=== PATIENT | female | born 1985 | race African-American/Black ===

== ENCOUNTER 2020-05-17 10:16 | Emergency (ER) | payer OTHER ==
[~2020-05-17] VITALS: Ht 172.7 cm; Wt 113.0 kg
[2020-05-17 10:35] VITALS: BP 146/93
--- NOTE | 2020-05-17 10:49 | PHYS DOC ---
General Adult EDM: Chief Complaint: SHORTNESS OF BREATH HPI: HPI: History obtained from patient. Patient is a 35-year-old female with recent right breast lumpectomy, asthma, anxiety who presents with chief complaint of shortness of breath. Patient states she had a right breast lumpectomy 5 days prior to arrival. She states she developed some shortness of breath over the weekend. She states she thought it was asthma so she tried her nebulizers at home with minimal relief. She spoke with her surgeon's office today who encouraged her to report to the emergency department for further evaluation. She denies chest pain. She does note extreme anxiousness. She states she is fearful of what could be causing this. She did try an inhaler this morning without relief. Notes mild cough. States she was tested for Covid prior to her surgery and was negative. Denies fevers. Denies chest pain or syncope. Denies feelings of irregular rapid heartbeat. Denies history of blood clot in the legs or lungs. No other complaints. Review of Systems: Review of Systems: Constitutional: Denies fever or chills Eyes: Denies change in visual acuity HENT: Denies nasal congestion or sore throat Respiratory: Positive for shortness of breath and cough Cardiovascular: Denies chest pain or edema GI: Denies abdominal pain, nausea, vomiting, bloody stools or diarrhea : Denies dysuria Musculoskeletal: Denies back pain or joint pain Integument: Denies rash Neurologic: Denies headache, focal weakness or sensory changes Endocrine: Denies polyuria or polydipsia Lymphatic: Denies swollen glands Psychiatric: Positive for anxiety Physical Exam: PE: Constitutional: Well developed, well nourished, no acute distress, non-toxic appearance. [] HENT: Normocephalic, atraumatic, bilateral external ears normal, oropharynx moist, no oral exudates, nose normal. [] Eyes: PERRLA, EOMI, conjunctiva normal, no discharge. [] Neck: Normal range of motion, no tenderness, supple, no stridor. [] Cardiovascular: Tachycardic, regular. No murmurs appreciated. 4 cm surgical site noted to the right medial mammillary fold. Dermabond overlying. No surrounding erythema or induration. No crepitus palpated. Lungs & Thorax: Bilateral breath sounds clear to auscultation [] Abdomen: soft, no tenderness, no masses, no pulsatile masses. [] Skin: Warm, dry, no erythema, no rash. [] Back: No tenderness, no CVA tenderness. [] Extremities: No tenderness, no cyanosis, no clubbing, ROM intact, no edema. [] Neurologic: Alert and oriented X 3, normal motor function, normal sensory function, no focal deficits noted. [] Psychologic: Anxious appearing Current Patient Data: Labs: Laboratory Tests Test 05/17/20 11:10 White Blood Count 15.0 x10^3/uL Red Blood Count 4.41 x10^6/uL Hemoglobin 13.4 g/dL Hematocrit 41.0 % Mean Corpuscular Volume 93 fL Mean Corpuscular Hemoglobin 30 pg Mean Corpuscular Hemoglobin Concent 33 g/dL Red Cell Distribution Width 14.0 % Platelet Count 174 x10^3/uL Neutrophils (%) (Auto) 70 % Lymphocytes (%) (Auto) 23 % Monocytes (%) (Auto) 5 % Eosinophils (%) (Auto) 1 % Basophils (%) (Auto) 0 % Neutrophils # (Auto) 10.6 x10^3uL Lymphocytes # (Auto) 3.4 x10^3/uL Monocytes # (Auto) 0.8 x10^3/uL Eosinophils # (Auto) 0.2 x10^3/uL Basophils # (Auto) 0.0 x10^3/uL Maternal Serum HCG Beta Subunit < 1 mIU/mL Sodium Level 137 mmol/L Potassium Level 4.1 mmol/L Chloride Level 103 mmol/L Carbon Dioxide Level 24 mmol/L Anion Gap 10 Blood Urea Nitrogen 7 mg/dL Creatinine 0.8 mg/dL Estimated GFR (Cockcroft-Gault) 98.8 Glucose Level 98 mg/dL Calcium Level 8.5 mg/dL Troponin I Quantitative < 0.017 ng/mL FP-Ulj-B-Type Natriuretic Peptide 66 pg/mL Current Medications Medications (Trade) Dose Ordered Sig/Ev Route PRN Reason Start Time Stop Time Status Last Admin Dose Admin Lorazepam (Ativan Inj) 1 mg 1X ONCE IVP 05/17/20 10:45 05/17/20 11:29 DC 05/17/20 11:26 Iohexol (Omnipaque 350 Mg/ml) 100 ml 1X ONCE IV 05/17/20 11:00 05/17/20 11:29 DC 05/17/20 11:58 Vital Signs: Vital Signs Date Time Temp Pulse Resp B/P (MAP) Pulse Ox O2 Delivery O2 Flow Rate FiO2 05/17/20 10:35 98.8 88 16 146/93 (110) 98 EKG: EKG: [] EKG consistent with normal sinus rhythm. Ventricular rate of 87 bpm. Left axis deviation noted. Nonspecific T wave abnormality noted in lead III. No acute ischemic changes appreciated. No previous EKG for comparison. Radiology/Procedures: Radiology/Procedures: [address] [address] IMAGING REPORT Signed PATIENT: MARTINEZ WOLF AACCOUNT: [id number] : 1985 LOCATION: ER AGE: 35 SEX: F EXAM STATUS: REG ER ORD. PHYSICIAN: CHUYITA RICHARDS DO REASON: SOB. recent hx R lumpectomy PROCEDURE: CT ANGIOGRAPHY CHEST CTA CHEST INDICATION: SOB. recent hx R lumpectomy Comparison: None. TECHNIQUE: Following the uneventful administration of intravenous contrast, 75 cc Isovue-370, axial CT sections were obtained through the lungs and upper abdomen. Multiplanar reconstructions and MIP images were obtained. PQRS compliance statement: One or more of the following individualized dose reduction techniques were utilized for this examination: 1. Automated exposure control 2. Adjustment of the mA and/or kV according to patient size 3. Use of iterative reconstruction technique FINDINGS: Pulmonary arteries: No evidence of large central pulmonary thromboembolic disease. Segmental and subsegmental branches not well evaluated due to suboptimal contrast opacification. Lungs and Airways: No pulmonary mass or consolidation. No abnormality of the central airways. Pleura: The pleural spaces are normal. Heart and Mediastinum: The visualized thyroid is normal in size and attenuation. No axillary or supraclavicular lymphadenopathy. No mediastinal, hilar or retrocrural lymphadenopathy. The heart and pericardium are within normal limits. The great vessels of the thorax are normal. Abdomen: Limited images through the upper abdomen show no abnormality of the visualized organs. Bones and Soft Tissues: No acute osseous abnormality. Postsurgical changes of recent right lumpectomy. No fluid collection. IMPRESSION: 1. No evidence of large central pulmonary thromboembolic disease. Segmental and subsegmental branches not well evaluated due to suboptimal contrast opacification. 2. No pulmonary mass or consolidation. 3. Postsurgical changes of recent right breast lumpectomy. No large fluid collection. Electronically signed by: Carmen Brunner MD (05/17/2020 12:17 PM) [id number] DICTATED AND SIGNED BY: CARMEN BRUNNER MD DATE: 05/17/20 1208 CC: CHUYITA RICHARDS DO; DEBBIE RODRIGUEZ ~MTH0 0 [] Heart Score: Risk Factors: Risk Factors: DM, Current or recent (<one month) smoker, HTN, HLP, family history of CAD, obesity. Risk Scores: Score 0 - 3: 2.5% MACE over next 6 weeks - Discharge Home Score 4 - 6: 20.3% MACE over next 6 weeks - Admit for Clinical Observation Score 7 - 10: 72.7% MACE over next 6 weeks - Early Invasive Strategies Course & Med Decision Making: Course & Med Decision Making Pertinent Labs and Imaging studies reviewed. (See chart for details) [] Patient is an extremely anxious appearing 35-year-old female who presents with chief complaint of chest discomfort when she breathes in and associated shortness of breath. She notes a recent right breast lumpectomy. Initial vital signs grossly unremarkable. EKG without acute ischemic changes. CT imaging of the chest was obtained reveals no pulmonary Bhilai or signs of infectious etiology. Patient surgical site appears well-healed. moderate tenderness palpation over the surgical site. Labs were obtained and were grossly remarkable. She has a mild leukocytosis of 15,000. Low suspicion for infectious etiology but potentially reactive from her recent surgery. On repeat assessment after receiving anxiety medication patient appears significantly improved. She is able to relate to me now that she does have a history of severe anxiety and does typically take Xanax daily but not take it recently due to nausea. She states that ever since she was diagnosed with adenovirus 9 years ago she has had severe anxiety particularly around healthcare providers. Significant other in the room also corroborates this. Her repeat auscultation reveals no wheezes. I do suspect that her symptoms could related to some postsurgical chest wall discomfort. I do feel she is appropriate for discharge home. Low risk heart score by my estimation. I did discuss results of labs and imaging great detail the patient. All concerns were addressed. I did instruct follow-up with her surgeon and PCP in the next 2 to 3 days. Patient is comfortable and agreeable with outpatient management. She was encouraged to continue to use her postoperative pain medication as prescribed by her physician. Anti-inflammatories also encouraged. Stable for discharge home. Ericka Disclaimer: Ericka Disclaimer: This electronic medical record was generated, in whole or in part, using a voice recognition dictation system. Departure Departure: Impression: Primary Impression: Shortness of breath Additional Impression: Anxiety Disposition: 01 DC HOME SELF CARE/HOMELESS Condition: STABLE Referrals: DEBBIE RODRIGUEZ (PCP) Patient Instructions: Anxiety and Panic Attacks Additional Instructions: Please follow with your primary care physician and surgeon within the next 2 to 3 days. CHUYITA RICHARDS DO May 17, 2020 10:49
[2020-05-17] MEDS ORDERED: IOHEXOL 350 MG/ML 100 ML VIAL. IV ONE (11:00)
[2020-05-17 11:39] LABS: BASO % 0 % (0-3); EOS # 0.2 x10^3/uL (0.0-0.7); EOS % 1 % (0-3); HEMOGLOBIN 13.4 g/dL (12.0-15.5); LYMPH # 3.4 x10^3/uL (1.0-4.8); LYMPH % 23 % (24-48); MEAN CORPUSCULAR HEMOGLOBIN 30 pg (25-35); MEAN CORPUSCULAR HGB CONC 33 g/dL (31-37); MEAN CORPUSCULAR VOLUME 93 fL (79-100); MONO # 0.8 x10^3/uL (0.0-1.1); MONO % 5 % (0-9); NEUT # 10.6 x10^3uL (1.8-7.7); NEUT % 70 % (31-73); PLATELET COUNT 174 x10^3/uL (140-400); RED BLOOD COUNT 4.41 x10^6/uL (3.50-5.40)
[2020-05-17 11:48] LABS: CALCIUM 8.5 mg/dL (8.5-10.1); CREATININE 0.8 mg/dL (0.6-1.0); GFR 98.8; POTASSIUM 4.1 mmol/L (3.5-5.1)
--- NOTE | 2020-05-17 12:19 | RAD ---
CTA CHEST INDICATION: SOB. recent hx R lumpectomy Comparison: None. TECHNIQUE: Following the uneventful administration of intravenous contrast, 75 cc Isovue-370, axial C T sections were obtained through the lungs and upper abdomen. Multiplanar reconstructions and MIP brooke ges were obtained. PQRS compliance statement: One or more of the following individualized dose reduction techniques were utilized for this examinat ion: 1. Automated exposure control 2. Adjustment of the mA and/or kV according to patient size 3. Use of iterative reconstruction technique FINDINGS: Pulmonary arteries: No evidence of large central pulmonary thromboembolic disease. Segmental and subs egmental branches not well evaluated due to suboptimal contrast opacification. Lungs and Airways: No pulmonary mass or consolidation. No abnormality of the central airways. Pleura: The pleural spaces are normal. Heart and Mediastinum: The visualized thyroid is normal in size and attenuation. No axillary or supra clavicular lymphadenopathy. No mediastinal, hilar or retrocrural lymphadenopathy. The heart and peric ardium are within normal limits. The great vessels of the thorax are normal. Abdomen: Limited images through the upper abdomen show no abnormality of the visualized organs. Bones and Soft Tissues: No acute osseous abnormality. Postsurgical changes of recent right lumpectomy . No fluid collection. IMPRESSION: 1. No evidence of large central pulmonary thromboembolic disease. Segmental and subsegmental branches not well evaluated due to suboptimal contrast opacification. 2. No pulmonary mass or consolidation. 3. Postsurgical changes of recent right breast lumpectomy. No large fluid collection. Electronically signed by: Paco Brunner MD (05/17/2020 12:17 PM) [id number]
--- NOTE | 2020-05-17 16:09 | EKG ---
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
== END 2020-05-17 13:33 | disposition home or self-care (01) ==
LOC: ER 10:16
DX: F41.9 Anxiety disorder, unspecified (principal); R06.02 Shortness of breath; J45.909 Unspecified asthma, uncomplicated
CPT/HCPCS: 36415; 71275; 80048; 83880; 84484; 84702; 85025; 93005; 96374; 99285; J2060; Q9967

== ENCOUNTER 2020-09-25 11:05 | Emergency (ER) | payer OTHER ==
[~2020-09-25] VITALS: Ht 172.7 cm; Wt 113.0 kg
--- NOTE | 2020-09-25 11:55 | PHYS DOC ---
Past History Past Medical History: Anxiety, Asthma, Depression, Other Additional Past Medical Histor: seasonal/enviornmental allergies Past Surgical History: Other Additional Past Surgical Histo: Lumpectomy 04/11/2020, Barthalonin cyst removed. Alcohol Use: Occasionally General Adult HPI: HPI: 35-year-old -[place] female past medical history of asthma, depression and anxiety, presents to the ED sent by her PCP Dr. Gamboa, whom I spoke with, complains of anxiety and nervousness. Pr Dr. Gamboa, patient was panicking, hyperventilating and sobbing in her waiting room/ lobby. Referred patient to [facility] for psychiatry evaluation (pt reported no suicidal homicidal complaints). Patient is on Zoloft 150 mg daily and Xanax 0.5 mg as needed. Is out of her Xanax. Tested negative for Covid in May 2020. Was prescribed prednisone and a Z-Neal for cough [address] Gamboa. Pt reports she tested negative for covid this past week. 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 Patient has not gotten the Covid vaccine. Review of Systems: Review of Systems: Constitutional: Denies fever or chills or lack of taste or smell Eyes: Denies change in visual acuity or eye discharge HENT: Denies nasal congestion or sore throat Respiratory: Denies cough or hemoptysis Cardiovascular: Denies chest pain or syncope GI: Denies abdominal pain or bloody stools : Denies dysuria or vaginal bleeding Musculoskeletal: Denies back pain or joint pain Integument: Denies rash or blistering lesions Neurologic: Denies headache, focal weakness or sensory changes Endocrine: Denies polyuria or polydipsia Lymphatic: Denies swollen glands Psychiatric: Denies self or homicidal ideations Allergies: Allergies: Allergies Coded Allergies Type Severity Reaction Last Updated Verified cephalexin Allergy Unknown 05/17/20 Yes Physical Exam: PE: Constitutional: Well developed, well nourished, no acute distress, non-toxic appearance. HENT: Normocephalic, atraumatic, Eyes: EOMI, conjunctiva normal, no discharge. Neck: Normal range of motion, supple, Cardiovascular: S1/2 present, regular rhythm Lungs & Thorax: Speaking in full sentences, bilateral equal chest rise, no tachypnea or increased work of breathing Abdomen: soft, no tenderness, Skin: Warm, dry, no erythema, no rash. [] Back: No tenderness, no CVA tenderness. [] Extremities: No tenderness, no cyanosis, no lower extremity edema Neurologic: Alert and oriented X 3, normal motor function, normal sensory function, no focal deficits noted. [] Psychologic: Affect normal, judgement normal, mood -very anxious, starts shaking her entire body and hyperventilating, requires alot of verbal redirection by rn,myself and her father EKG: EKG: Sinus rhythm at 75 bpm, no axis deviation, normal intervals, T wave inversion le ad III, no ST elevations or ST depressions Radiology/Procedures: Radiology/Procedures: IMAGING REPORT Signed PATIENT: MARTINEZ WOLF AACCOUNT: [id number] : 1985 LOCATION: ER AGE: 35 SEX: F EXAM STATUS: REG ER ORD. PHYSICIAN: CHRIS GOSS DO REASON: cough PROCEDURE: PORTABLE CHEST 1V EXAM: XR CHEST 1V 09/25/2020 11:34 AM CLINICAL INDICATION: Cough COMPARISON: CT chest 05/17/2020 TECHNIQUE: AP upright view of the chest FINDINGS: The heart and mediastinum are normal. Lungs are well-expanded and clear. No consolidation, pleural effusion, or pneumothorax. Pulmonary vascularity is normal. The thoracic skeleton is intact. IMPRESSION: Normal chest radiograph. Electronically signed by: Alicia Bowser MD (09/25/2020 12:03 PM) [id number] DICTATED AND SIGNED BY: ALICIA BOWSER MD DATE: 09/25/20 1158 CC: CHRIS GOSS DO; DEBBIE RODRIGUEZ ~MTH0 0 Heart Score: C/O Chest Pain: No Risk Factors: Risk Factors: DM, Current or recent (<one month) smoker, HTN, HLP, family history of CAD, obesity. Risk Scores: Score 0 - 3: 2.5% MACE over next 6 weeks - Discharge Home Score 4 - 6: 20.3% MACE over next 6 weeks - Admit for Clinical Observation Score 7 - 10: 72.7% MACE over next 6 weeks - Early Invasive Strategies Course & Med Decision Making: Course & Med Decision Making Pertinent Labs and Imaging studies reviewed. (See chart for details) Concern for significant anxiety regarding health/pandemic/getting pneumonia. Denies suicidal homicidal ideations. PAT team consult was performed. Patient is not a danger to herself or others. Has very supportive father at bedside, (patient consents to his/her/their knowledge and involvement in pts' medical care). Ed workup reassurred pt - covid test pending although low suspicion for pui. I spoke to Dr. Gamboa, regarding pts' ED management and she wll refill patient's benzodiazepine prescription. Will discharge home with strict ED return precautions were given for suicidal or homicidal ideations, head injury or difficulties breathing. Encouraged urgent outpatient follow-up with PMD and psychiatry. Life-threatening processes were considered but are low suspicion at this time, given history, physical exam and ED workup. Pt was educated on all prescription medications and adverse effects. All patient's questions were answered and pt was stable at time of discharge. Life/limb-threatening differential includes but is not limited to, end organ damage/sepsis, trauma/abuse/neglect, neurologic deficit, alcohol/drug ingestion, toxidrome, suicidal/homicidal ideations plans or attempts, psychosis or mental illness resulting in self neglect and inability to care for self. I spoken with the patient and her caregivers. I explained the patient's condition, diagnoses and treatment plan based on the information available to me at this time. I have answered the patient and her caregiver's questions and addressed any concerns. The patient and her caregivers have a good unde rstanding of patient's diagnosis, condition and treatment plan as can be expected at this point. Vital signs have been stable. Patient's condition is stable and appropriate for discharge from the emergency department. Patient will pursue further outpatient evaluation with primary care physician or other designated or consulting physician as outlined in the discharge instructions. The patient and/or caregivers are agreeable to this plan of care and follow-up instructions have been explained in detail. The patient and/or caregivers have received these instructions in written form and have expressed an understanding of the discharge instructions. The patient and/or caregivers are aware that any significant change of condition or worsening of symptoms ranjan uld prompt immediate return to this or the closest emergency department or call to 911. Ericka Disclaimer: Ericka Disclaimer: This electronic medical record was generated, in whole or in part, using a voice recognition dictation system. Departure Departure: Impression: Primary Impression: Panic attacks Disposition: HOME / SELF CARE / HOMELESS Condition: STABLE Referrals: DEBBIE RODRIGUEZ (PCP) in 24-48 hours for re-evaluation Patient Instructions: Anxiety and Panic Attacks Additional Instructions: FOLLOW UP WITH PSYCHIATRY: For definitive management [facility] [address] [place] [address] [facility] [address] [place] [address] Nicholas BOSS [address] [place] [address] EMERGENCY DEPARTMENT GENERAL DISCHARGE INSTRUCTIONS Thank you for coming to [facility] (ED) today and trusting us with you care. We trust that you had a positivie experience in our Emergency Department. If you wish to speak to the department management, you may call the director at [phone]. YOUR FOLLOW UP INSTRUCTIONS ARE FOLLOWS: 1. Do you have a private Doctor? If you do not have a private doctor, please ask for a resource list of physicians or clinics that may be able to assist you with follow up care. 2. The Emergency Physician has interpreted your x-rays. The X-Ray specialist will also review them. If there is a change in the findings, you will be notified in 48 hours when at all possible. 3. A lab test or culture has been done, your results will be reviewed and you will be notified if you need a change in treatment. ADDITIONAL INSTRUCTIONS AND INFORMATION: 1. Your care today has been supervised by a physician who is specially trained in emergency care. Many problems require more than one evaluation for a complete diagnosis and treatment. We recommend that you schedule your follow up appointment as recommended to ensure complete treatment of you illness or injury. If you are unable to obtain follow up care and continue to have a problem, or if your condition worsens, we recommend that you return to the ED. 2. We are not able to safely determine your condition over the phone nor are we able to give sound medical advice over the phone. For these safety reasons, if you call for medical advice we will ask you to come to the ED for further evaluation. 3. If you have any questions regarding these discharge instructions please call the ED at [phone]. SAFETY INFORMATION: In the interest of safety, wellness, and injury prevention; we encourage you to wear your sealbelt, if you smoke; quite smoking, and we encourage family to use a protective helmet for bicycling and other sporting events that present an increased risk for head injury. IF YOUR SYMPTOMS WORSEN OR NEW SYMPTOMS DEVELOP, OR YOU HAVE CONCERNS ABOUT YOUR CONDITION; OR IF YOUR CONDITION WORSENS WHILE YOU ARE WAITING FOR YOUR FOLLOW UP APPOINTMENT; EITHER CONTACT YOUR PRIMARY CARE DOCTOR, THE PHYSICIAN WHOSE NAME AND NUMBER YOU WERE GIVEN, OR RETURN TO THE ED IMMEDIATELY. CHRIS HOWARD DO Sep 25, 2020 11:55
--- NOTE | 2020-09-25 12:06 | RAD ---
EXAM: XR CHEST 1V 09/25/2020 11:34 AM CLINICAL INDICATION: Cough COMPARISON: CT chest 05/17/2020 TECHNIQUE: AP upright view of the chest FINDINGS: The heart and mediastinum are normal. Lungs are well-expanded and clear. No consolidatio n, pleural effusion, or pneumothorax. Pulmonary vascularity is normal. The thoracic skeleton is int act. IMPRESSION: Normal chest radiograph. Electronically signed by: Alicia Bowser MD (09/25/2020 12:03 PM) [id number]
[2020-09-25 12:21] LABS: BASO % 1 % (0-3); EOS % 0 % (0-3); HEMATOCRIT 38.8 % (36.0-47.0); HEMOGLOBIN 13.2 g/dL (12.0-15.5); LYMPH # 2.7 x10^3/uL (1.0-4.8); LYMPH % 38 % (24-48); MEAN CORPUSCULAR HEMOGLOBIN 31 pg (25-35); MEAN CORPUSCULAR HGB CONC 34 g/dL (31-37); MEAN CORPUSCULAR VOLUME 92 fL (79-100); MONO # 0.6 x10^3/uL (0.0-1.1); MONO % 8 % (0-9); NEUT # 3.8 x10^3uL (1.8-7.7); NEUT % 54 % (31-73); PLATELET COUNT 221 x10^3/uL (140-400); RED BLOOD COUNT 4.24 x10^6/uL (3.50-5.40); RED CELL DISTRIBUTION WIDTH 14.1 % (11.5-14.5); WHITE BLOOD COUNT 7.2 x10^3/uL (4.0-11.0)
[2020-09-25 12:31] LABS: CALCIUM 8.8 mg/dL (8.5-10.1); GFR 76.3; POTASSIUM 4.1 mmol/L (3.5-5.1)
[2020-09-25 12:38] LABS: ALBUMIN 3.7 g/dL (3.4-5.0); ALBUMIN/GLOBULIN RATIO 1.1 (1.0-1.7); TOTAL BILIRUBIN 0.4 mg/dL (0.2-1.0); TOTAL PROTEIN 7.1 g/dL (6.4-8.2)
[2020-09-25 14:30] VITALS: BP 115/74
[2020-09-25 15:57] LABS: PREG TEST PT QUAL NEGATIVE (NEG)
--- NOTE | 2020-09-25 19:01 | EKG ---
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
== END 2020-09-25 15:09 | disposition home or self-care (01) ==
LOC: ER 11:05
DX: F41.0 Panic disorder [episodic paroxysmal anxiety] (principal); J45.909 Unspecified asthma, uncomplicated; F32.9 Major depressive disorder, single episode, unspecified; Z20.822 Contact with and (suspected) exposure to COVID-19; Z88.1 Allergy status to other antibiotic agents
CPT/HCPCS: 71045; 80053; 82550; 84484; 84703; 85025; 93005; 96374; 99285; C9803; J2060; U0003